=== PATIENT | male | born 1965 | race Caucasian/White ===

== ENCOUNTER 2022-04-18 21:06 | Inpatient (IN) | payer MEDICARE ==
[~2022-04-18] VITALS: Ht 175.3 cm; Wt 171.0 kg
[~2022-04-18 21:06] MED LIST: AMOXICILLIN500 MG OR; FLEXERIL OR; FLOMAX0.4 M1 PO; FLOMAX0.4 MG OR; LORTAB 10 OR; LORTAB 5 OR; LORTAB 5/3255 MG PO; LYRICA50 MG PO; METFORMIN500 MG PO; NAPROSYN500 MG PO; NO HOME MEDS; NO HOME MEDS.; PERCOCET 5/325M1 TAB OR; ULTRAM50 M1 PO; UNKNOWN BP PILL; ZOFRAN ODT4 MG OR; ZOFRAN ODT8 MG PO
[2022-04-18 21:52] LABS: BASO% 0.1 % (0-3); EOS% 2.2 % (0-8); HEMATOCRIT 49.1 % (39.0-50.0); HEMOGLOBIN 16.6 g/dl (14.0-18.0); IMMATURE GRANULOCYTES 0.3 % (0.0-5.0); LYMPH% 16.3 % (15-41); MEAN CELL VOLUME 99.2 fL CALC (80.0-100.0); MEAN CORPUSCULAR HGB 33.5 pG CALC (26.0-32.0); MEAN CORPUSCULAR HGB CONC 33.8 g/dL CAL (32.0-36.0); MONO% 8.3 % (2-13); NEUT# 7.03 thou/uL (1.82-7.42); NEUT% 72.8 % (42-76); RED BLOOD COUNT 4.95 mill/uL (4.70-6.10); RED CELL DISTRI WIDTH 13.7 % (11.5-15.5)
[2022-04-18 22:04] LABS: ALBUMIN 4.4 g/dL (3.2-5.0); ALKALINE PHOSPHATASE 95 u/l (38-126); ANION GAP 13 (6-22 (CALC)); BILIRUBIN, TOTAL 0.4 mg/dL (0.0-1.4); BUN 24 mg/dL (9-20); BUN/CREATININE RATIO 23 (12-20 (CALC)); CARBON DIOXIDE 25 mmol/l (22-30); CHLORIDE 107 mmol/l (95-108); GFR FOR AFR.AMER. > 60 ML/MIN (>=60 (CALC)); GFR OTHER RACES > 60 ML/MIN (>=60 (CALC)); PROTHROMBIN TIME 10.4 SECONDS (9.0-12.5); SGOT/AST 32 u/l (17-59); SODIUM 141 mmol/l (137-146); TOTAL PROTEIN 8.1 g/dL (6.3-8.2)
[2022-04-19] VITALS (49 sets, daily range): BP systolic 123–223; BP diastolic 73–156
[2022-04-19 00:08] LABS: URINE BILIRUBIN - DIPSTICK NEGATIVE (NEGATIVE); URINE BLOOD DIPSTICK TRACE-INTACT (NEGATIVE); URINE COLOR YELLOW; URINE GLUCOSE - DIPSTICK 100 mg/dL (NEGATIVE); URINE KETONE NEGATIVE (NEGATIVE); URINE LEUK ESTERASE NEGATIVE (NEGATIVE); URINE NITRITE - DIPSTICK NEGATIVE (Negative); URINE PROTEIN - DIPSTICK 30 mg/dL (NEG-TRACE); URINE SPECIFIC GRAVITY >=1.030; URINE UROBILINOGEN - DIPSTICK 0.2 E.U./dL (0.2)
[2022-04-19 00:18] LABS: URINE SQUAMOUS EPITHELIAL CELL FEW EPI/hpf (0-FEW); URINE WBC 0-2 WBC/hpf (0-5)
[2022-04-19 01:51] LABS: ALBUMIN 4.3 g/dL (3.2-5.0); BILIRUBIN, TOTAL 0.6 mg/dL (0.0-1.4); C-REACTIVE PROTEIN 1.8 mg/dL (0-0.9); CHOLESTEROL HDL RATIO 5.4 (<4.4 (CALC))
[2022-04-19 23:58] LABS: ANION GAP 10 (6-22 (CALC)); BUN 21 mg/dL (9-20); BUN/CREATININE RATIO 19 (12-20 (CALC)); CARBON DIOXIDE 27 mmol/l (22-30); CHLORIDE 105 mmol/l (95-108); CREATININE 1.1 mg/dL (0.7-1.3); GFR FOR AFR.AMER. > 60 ML/MIN (>=60 (CALC)); GFR OTHER RACES > 60 ML/MIN (>=60 (CALC)); POTASSIUM 4.2 mmol/l (3.5-5.1); SODIUM 138 mmol/l (137-146)
[2022-04-20] VITALS (19 sets, daily range): BP systolic 137–188; BP diastolic 84–124
[2022-04-20 01:36] LABS: BASO% 0.5 % (0-3); EOS% 2.4 % (0-8); HEMATOCRIT 44.3 % (39.0-50.0); HEMOGLOBIN 14.9 g/dl (14.0-18.0); IMMATURE GRANULOCYTES 0.7 % (0.0-5.0); LYMPH% 18.5 % (15-41); MEAN CELL VOLUME 99.6 fL CALC (80.0-100.0); MEAN CORPUSCULAR HGB 33.5 pG CALC (26.0-32.0); MEAN CORPUSCULAR HGB CONC 33.6 g/dL CAL (32.0-36.0); MONO% 10.5 % (2-13); NEUT# 5.89 thou/uL (1.82-7.42); NEUT% 67.4 % (42-76); RED BLOOD COUNT 4.45 mill/uL (4.70-6.10); RED CELL DISTRI WIDTH 13.8 % (11.5-15.5)
[2022-04-20 09:20] LABS: BASO% 0.2 % (0-3); EOS% 2.3 % (0-8); HEMATOCRIT 43.6 % (39.0-50.0); HEMOGLOBIN 14.8 g/dl (14.0-18.0); IMMATURE GRANULOCYTES 0.1 % (0.0-5.0); LYMPH% 17.7 % (15-41); MEAN CELL VOLUME 99.5 fL CALC (80.0-100.0); MEAN CORPUSCULAR HGB 33.8 pG CALC (26.0-32.0); MEAN CORPUSCULAR HGB CONC 33.9 g/dL CAL (32.0-36.0); MONO% 7.6 % (2-13); NEUT# 6.04 thou/uL (1.82-7.42); NEUT% 72.1 % (42-76); RED BLOOD COUNT 4.38 mill/uL (4.70-6.10)
[2022-04-20 09:46] LABS: ANION GAP 9 (6-22 (CALC)); BUN 23 mg/dL (9-20); BUN/CREATININE RATIO 22 (12-20 (CALC)); CARBON DIOXIDE 29 mmol/l (22-30); CHLORIDE 105 mmol/l (95-108); CREATININE 1.1 mg/dL (0.7-1.3); GFR FOR AFR.AMER. > 60 ML/MIN (>=60 (CALC)); GFR OTHER RACES > 60 ML/MIN (>=60 (CALC)); POTASSIUM 4.1 mmol/l (3.5-5.1); SODIUM 139 mmol/l (137-146)
[2022-04-20] MEDS ORDERED: LIPITOR80 M1 PO (16:04)
[2022-04-20] MEDS ORDERED: ADLT ASA LOW81 MG PO (16:04)
[2022-04-20] MEDS ORDERED: PLAVIX75 MG PO (16:04)
[2022-04-20] MEDS ORDERED: LOSARTAN POTASS50 MG PO (16:04)
== END 2022-04-20 17:25 | disposition home health service (06) | DRG 62 ==
LOC: ED 21:06 → ICU 04-19 01:57
PROVIDERS: Family Medicine; ADMIT Internal Medicine; ATTEND Internal Medicine
DX: I63.511 Cerebral infarction due to unspecified occlusion or stenosis of right middle cerebral artery (principal); I50.22 Chronic systolic (congestive) heart failure; G83.24 Monoplegia of upper limb affecting left nondominant side; R47.1 Dysarthria and anarthria; R20.0 Anesthesia of skin; R29.810 Facial weakness; R41.82 Altered mental status, unspecified; R29.705 NIHSS score 5; I11.0 Hypertensive heart disease with heart failure; R73.03 Prediabetes; E78.5 Hyperlipidemia, unspecified; E66.9 Obesity, unspecified; G47.30 Sleep apnea, unspecified; Z87.891 Personal history of nicotine dependence
CPT/HCPCS: J3101; Q9967

== ENCOUNTER 2022-05-08 19:22 | Emergency (ER) | payer MEDICARE ==
[~2022-05-08] VITALS: Ht 175.3 cm; Wt 159.0 kg
[~2022-05-08 19:22] MED LIST changes: +ADLT ASA LOW81 MG PO; +LIPITOR80 M1 PO; +LOSARTAN POTASS50 MG PO; +PLAVIX75 MG PO
[2022-05-08 20:21] LABS: ALBUMIN 4.4 g/dL (3.2-5.0); ALKALINE PHOSPHATASE 90 u/l (38-126); ANION GAP 16 (6-22 (CALC)); BILIRUBIN, TOTAL 0.6 mg/dL (0.2-1.3); BUN 22 mg/dL (9-20); BUN/CREATININE RATIO 22 (12-20 (CALC)); CARBON DIOXIDE 27 mmol/l (22-30); CHLORIDE 103 mmol/l (95-108); ETHYL ALCOHOL 0 mg/dl (0-30); GFR FOR AFR.AMER. > 60 ML/MIN (>=60 (CALC)); GFR OTHER RACES > 60 ML/MIN (>=60 (CALC)); POTASSIUM 4.4 mmol/l (3.5-5.1); SGOT/AST 37 u/l (17-59); SODIUM 142 mmol/l (137-146); TOTAL PROTEIN 8.6 g/dL (6.3-8.2)
[2022-05-08 20:37] LABS: BASO% 0.3 % (0-3); EOS% 1.6 % (0-8); HEMATOCRIT 46.1 % (39.0-50.0); HEMOGLOBIN 15.5 g/dl (14.0-18.0); IMMATURE GRANULOCYTES 0.1 % (0.0-5.0); LYMPH% 12.6 % (15-41); MEAN CELL VOLUME 95.8 fL CALC (80.0-100.0); MEAN CORPUSCULAR HGB 32.2 pG CALC (26.0-32.0); MEAN CORPUSCULAR HGB CONC 33.6 g/dL CAL (32.0-36.0); MONO% 6.8 % (2-13); NEUT# 7.2 thou/uL (1.82-7.42); NEUT% 78.6 % (42-76); RED BLOOD COUNT 4.81 mill/uL (4.70-6.10); RED CELL DISTRI WIDTH 12.6 % (11.5-15.5)
[2022-05-08 21:01] LABS: URINE BILIRUBIN - DIPSTICK NEGATIVE (NEGATIVE); URINE BLOOD DIPSTICK NEGATIVE (NEGATIVE); URINE COLOR YELLOW; URINE GLUCOSE - DIPSTICK NEGATIVE (NEGATIVE); URINE KETONE NEGATIVE (NEGATIVE); URINE LEUK ESTERASE NEGATIVE (NEGATIVE); URINE PH 5.5 (4.5-8.0); URINE PROTEIN - DIPSTICK NEGATIVE (NEG-TRACE); URINE SPECIFIC GRAVITY <=1.005; URINE UROBILINOGEN - DIPSTICK 0.2 E.U./dL (0.2)
[2022-05-08 21:02] LABS: URINE NITRITE - DIPSTICK NEGATIVE (Negative)
[2022-05-08 22:47] VITALS: BP 149/77
== END 2022-05-08 23:57 | disposition home or self-care (01) ==
LOC: ED 19:22
PROVIDERS: Emergency Medicine
DX: I10 Essential (primary) hypertension (principal); E78.00 Pure hypercholesterolemia, unspecified; Z86.73 Personal history of transient ischemic attack (TIA), and cerebral infarction without residual deficits

== ENCOUNTER 2023-01-02 23:40 | Emergency (ER) | payer SELFPAY ==
[~2023-01-02] VITALS: Ht 175.3 cm; Wt 144.0 kg
[2023-01-03] VITALS (11 sets, daily range): BP systolic 125–157; BP diastolic 64–100
[2023-01-03 01:02] LABS: BASO% 0.2 % (0-3); EOS% 1.6 % (0-8); HEMATOCRIT 40.5 % (39.0-50.0); HEMOGLOBIN 13.9 g/dl (14.0-18.0); IMMATURE GRANULOCYTES 0.8 % (0.0-5.0); LYMPH% 20.5 % (15-41); MEAN CELL VOLUME 98.8 fL CALC (80.0-100.0); MEAN CORPUSCULAR HGB 33.9 pG CALC (26.0-32.0); MEAN CORPUSCULAR HGB CONC 34.3 g/dL CAL (32.0-36.0); NEUT# 4.39 thou/uL (1.82-7.42); NEUT% 67.9 % (42-76); RED BLOOD COUNT 4.1 mill/uL (4.70-6.10); RED CELL DISTRI WIDTH 12.8 % (11.5-15.5)
[2023-01-03 01:10] LABS: ANION GAP 14 (6-22 (CALC)); BUN 29 mg/dL (9-20); BUN/CREATININE RATIO 23 (12-20 (CALC)); CARBON DIOXIDE 23 mmol/l (22-30); CHLORIDE 105 mmol/l (95-108); CREATININE 1.2 mg/dL (0.7-1.3); GFR FOR AFR.AMER. > 60 ML/MIN (>=60 (CALC)); GFR OTHER RACES > 60 ML/MIN (>=60 (CALC)); POTASSIUM 3.9 mmol/l (3.5-5.1); SODIUM 139 mmol/l (137-146)
[2023-01-03] MEDS ORDERED: COZAAR100 MG PO (01:39)
[2023-01-03] MEDS ORDERED: NORVASC2.5 M1 PO (01:40)
== END 2023-01-03 03:57 | disposition home or self-care (01) | DRG 305 ==
LOC: ED 23:40
PROVIDERS: Emergency Medicine
DX: I10 Essential (primary) hypertension (principal); S00.93XA Contusion of unspecified part of head, initial encounter; E78.00 Pure hypercholesterolemia, unspecified; W22.8XXA Striking against or struck by other objects, initial encounter; Z79.02 Long term (current) use of antithrombotics/antiplatelets; Z86.73 Personal history of transient ischemic attack (TIA), and cerebral infarction without residual deficits

== ENCOUNTER 2024-04-26 17:33 | Observation (INO) | payer SELFPAY ==
[~2024-04-26] VITALS: Ht 175.3 cm; Wt 141.6 kg
[2024-04-26] VITALS (7 sets, daily range): BP systolic 125–166; BP diastolic 80–98
[~2024-04-26 17:33] MED LIST changes: +COZAAR100 MG PO; +NORVASC2.5 M1 PO
[2024-04-26] MEDS ORDERED: LABETALOL HCL 20 MG/ 4 ML CARTRG IV ONE (18:10)
[2024-04-26 18:15] LABS: BASO% 0.2 % (0-3); EOS% 1.3 % (0-8); IMMATURE GRANULOCYTES 0.2 % (0.0-5.0); LYMPH% 24.6 % (15-41); MEAN CORPUSCULAR HGB 33.7 pG CALC (26.0-32.0); MEAN CORPUSCULAR HGB CONC 34.1 g/dL CAL (32.0-36.0); MONO% 9.7 % (2-13); NEUT# 5.81 thou/uL (1.82-7.42); RED BLOOD COUNT 4.95 mill/uL (4.70-6.10); RED CELL DISTRI WIDTH 12.6 % (11.5-15.5)
[2024-04-26 18:16] LABS: HEMOGLOBIN 16.7 g/dl (14.0-18.0)
[2024-04-26] MEDS ORDERED: PLAVIX75 MG PO (18:19)
[2024-04-26] MEDS ORDERED: HYDROCHLOROT25 MG PO (18:19)
[2024-04-26] MEDS ORDERED: ASPIRINCHW 81MG PO (18:20)
--- NOTE | 2024-04-26 18:21 | NUR ---
PATIENT TO ULTRASOUND VIA WHEELCHAIR
[2024-04-26 18:27] LABS: ALBUMIN 4.9 g/dL (3.2-5.0); ALKALINE PHOSPHATASE 89 u/l (38-126); ANION GAP 17 (6-22 (CALC)); BUN 22 mg/dL (9-20); BUN/CREATININE RATIO 21 (12-20 (CALC)); CARBON DIOXIDE 26 mmol/l (22-30); CHLORIDE 98 mmol/l (95-108); CREATININE 1.1 mg/dL (0.7-1.3); ESTIMATED GFR 77 ML/MIN (>=90 (CALC)); POTASSIUM 4.2 mmol/l (3.5-5.1); SGOT/AST 41 u/l (17-59); SODIUM 137 mmol/l (137-146); TOTAL PROTEIN 8.8 g/dL (6.3-8.2)
[2024-04-26 18:28] LABS: BILIRUBIN, TOTAL 0.9 mg/dL (0.2-1.3)
[2024-04-26 18:31] LABS: PROTHROMBIN TIME 10.7 SECONDS (9.0-12.5)
--- NOTE | 2024-04-26 18:41 | NUR ---
Reassessment of patient completed. No distress noted.
--- NOTE | 2024-04-26 18:52 | NUR ---
BEDSIDE REPORT WITH YUKO JOSÉ
--- NOTE | 2024-04-26 19:00 | NUR ---
REPORT RECEIVED FROM Edie PRATT RN
[2024-04-26 19:29] LABS: URINE BILIRUBIN - DIPSTICK Negative (NEGATIVE); URINE BLOOD DIPSTICK Trace-intact (NEGATIVE); URINE COLOR Light yellow; URINE GLUCOSE - DIPSTICK Negative (NEGATIVE); URINE KETONE Negative (NEGATIVE); URINE LEUK ESTERASE Negative (NEGATIVE); URINE NITRITE - DIPSTICK Negative (Negative); URINE PROTEIN - DIPSTICK Negative (NEG-TRACE); URINE SPECIFIC GRAVITY <=1.005; URINE UROBILINOGEN - DIPSTICK 0.2 E.U./dL (0.2)
[2024-04-26] MEDS ORDERED: MAGNESIUM HYDROXIDE 30 ML UDC PO PRN (19:55)
[2024-04-26] MEDS ORDERED: ACETAMINOPHEN 325 MG/TAB PO PRN (19:55)
--- NOTE | 2024-04-26 20:30 | NUR ---
ATTEMPTED TO CALL REPORT. NO ANSWER TO PHONE
[2024-04-26] MEDS ORDERED: amLODIPine BESYLATE 2.5 MG/TAB PO SCH (21:00)
[2024-04-26] MEDS ORDERED: ENOXAPARIN SODIUM 40 MG/0.4 ML SYR SC SCH (21:00)
--- NOTE | 2024-04-26 21:00 | NUR ---
ATTEMPTED TO CALL REPORT. SPOKE TO JOSE LUIS WHO IS UNAWARE THAT THEY ARE GETTING A PATIENT. NOTIFIED JOSE LUIS THAT WE HAVE A ROOM ASSIGNED AND WE HAVE TRIED TO CALL REPORT PREVIOUSLY. PER JOSE LUIS HE WILL FIND OUT AND CALL BACK.
--- NOTE | 2024-04-26 21:34 | NUR ---
CALLED FOR REPORT. PER JOSE LUIS THEY DO NOT HAVE AN SBAR, SBAR RE SENT
--- NOTE | 2024-04-26 21:48 | NUR ---
PER SLUDGE CONTROL ATTENDANT PATIENT IS TO BE HELD IN ED, UNTIL WE CAN OPEN UP ICU WHERE HE WILL GO AN OVERFLOW.
--- NOTE | 2024-04-26 22:46 | NUR ---
PATIENT AWAITING ICU BED.
--- NOTE | 2024-04-26 23:20 | NUR ---
REPORT GIVEN Ros ULLOA RN
[2024-04-27] VITALS (13 sets, daily range): BP systolic 113–157; BP diastolic 66–93
--- NOTE | 2024-04-27 00:25 | NUR ---
PATIENT TRANSPORTED TO ICU BED 5 BY Ana FREDERICK LPN
--- NOTE | 2024-04-27 00:28 | NUR ---
PATIENT ARRIVED TO THE UNIT VIA STRETCHER ACCOMPAINED BY ARNAV GUZMAN. ASSESSMENT COMPLETED. PATIENT ALERT AND ORIENTED X 3. DENIES PAIN AT THIS TIME. LUNGS CLEAR/DIMINISHED TO ASCULTATION. BREATHING EVEN AND UNLABORED ON ROOM AIR. SR ON THE MONITOR. BP STABLE. PATIENT ORIENTED TO ROOM AND CALL [facility] SYSTEM, DENIES CONCERNS AT THIS TIME. NO APPARENT DISTRESS NOTED. WILL CONTINUE WITH PLAN OF CARE.
--- NOTE | 2024-04-27 03:57 | NUR ---
PATIENT SITTING UP IN CHAIR. LAB AT BEDSIDE. PATIENT DENIES PAIN/CONCERNS AT THIS TIME. VSS. NO APPARENT DISTRESS NOTED. WILL CONTINUE WITH PLAN OF CARE.
[2024-04-27 05:43] LABS: BASO% 0.3 % (0-3); EOS% 1.1 % (0-8); HEMATOCRIT 49.2 % (39.0-50.0); HEMOGLOBIN 16.8 g/dl (14.0-18.0); IMMATURE GRANULOCYTES 0.5 % (0.0-5.0); LYMPH% 22.8 % (15-41); MEAN CORPUSCULAR HGB 34.1 pG CALC (26.0-32.0); MEAN CORPUSCULAR HGB CONC 34.1 g/dL CAL (32.0-36.0); MONO% 8.4 % (2-13); NEUT# 6.25 thou/uL (1.82-7.42); NEUT% 66.9 % (42-76); RED BLOOD COUNT 4.92 mill/uL (4.70-6.10); RED CELL DISTRI WIDTH 12.9 % (11.5-15.5)
[2024-04-27 06:09] LABS: ALBUMIN 4.6 g/dL (3.2-5.0); CHOLESTEROL HDL RATIO 3.8 (<4.4 (CALC)); CREATININE 1.2 mg/dL (0.7-1.3); MAGNESIUM 2.1 mg/dL (1.6-2.3); POTASSIUM 4.2 mmol/l (3.5-5.1); TOTAL PROTEIN 8.1 g/dL (6.3-8.2)
--- NOTE | 2024-04-27 07:41 | NUR ---
DR BARNETT AT BEDSIDE DISCUSSING PLAN OF CARE WITH PT AT THIS TIME.
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
[2024-04-27] MEDS ORDERED: CLONIDINE0.1 MG PO (07:51)
[2024-04-27] MEDS ORDERED: CLOPIDOGREL BISULFATE 75 MG/TAB TAB PO SCH (09:00)
[2024-04-27] MEDS ORDERED: amLODIPine BESYLATE 5 MG/TAB PO SCH (09:00)
[2024-04-27] MEDS ORDERED: LOSARTAN Potassium 50 MG/TAB PO SCH (09:00)
[2024-04-27] MEDS ORDERED: ASPIRIN 81 MG/TAB PO SCH (09:00)
--- NOTE | 2024-04-27 12:08 | NUR ---
PATIENT WAS DISCHARGED TO HOME .IV WAS REMOVED . EDUCATION WAS GIVEN ON MEDS AND HTN. PATIENT LEFT UNIT VIA STAFF TRANSPORT WITH CARLOSINGS IN HAND TAKEN DOWN STAIRS BY WHEEL CHAIR.
[2024-04-27] MEDS ORDERED: ATORVASTATIN CALCIUM 40 MG/TAB PO SCH (17:00)
--- NOTE | 2024-05-01 11:21 | NUR ---
Discharge follow up call copleted 05/01/24. Patient states he is improving. His blood pressure is beginning to return to normal. Patient is taking prescribed medicaiton as directed. Patient has seen his PCP for follow up this week. No needs or concerns verbalized by patient at this time. He is grateful for the follow up call.
== END 2024-04-27 11:30 | disposition home or self-care (01) | DRG 305 ==
LOC: ED 17:33 → ED-I 17:57 → ED 17:57 → ED-I 19:31 → ED 20:00 → ICU 20:01 → MS2 20:01 → ICU 22:35
PROVIDERS: Nurse Practitioner; Nurse Practitioner Family; ADMIT Internal Medicine; ATTEND Internal Medicine
DX: I16.0 Hypertensive urgency (principal); I10 Essential (primary) hypertension; E78.5 Hyperlipidemia, unspecified; G47.30 Sleep apnea, unspecified; E66.9 Obesity, unspecified; Z86.73 Personal history of transient ischemic attack (TIA), and cerebral infarction without residual deficits; Z79.82 Long term (current) use of aspirin; Z79.02 Long term (current) use of antithrombotics/antiplatelets; Z87.891 Personal history of nicotine dependence
CPT/HCPCS: J1650